=== PATIENT | female | born 1925 | race Caucasian/White ===

== ENCOUNTER → 2016-04-29 | Outpatient (CLI) | payer BC, OTHER ==
[~2016-04-29] MED LIST: ACET-1256 PO; ACET-1311 PO; CALC-354 PO; CEPH500C PO; CHOLTAB11 PO; CLIN300C2 PO; CRAN500C2 PO; LEVO1TAB35 PO; LEVO50TA6 PO; LORA-741 PO; OMEP20TA PO; PARO1TAB27 PO; PARO1TAB29 PO; RXC5 PO
== END | disposition home or self-care (01) ==
LOC: C.PAPS 11:30
PROVIDERS: ATTEND Obstetrics & Gynecology
DX: Z01.419 Encounter for gynecological examination (general) (routine) without abnormal findings (principal); N81.10 Cystocele, unspecified

== ENCOUNTER → 2016-05-11 | Outpatient (CLI) | payer BC ==
[2016-05-11 19:06] LABS: BLOOD UREA NITROGEN 11 mg/dl (7-18); BUN/CREATININE RATIO 11.8 (10-20); CALCIUM 9.6 mg/dl (8.5-10.1); CARBON DIOXIDE 26 mmol/L (21-32); CHLORIDE 97 mmol/L (98-107); CREATININE 0.97 mg/dl (0.60-1.20); GLUCOSE 136 mg/dl (70-99); SODIUM 133 mmol/L (136-145)
== END | disposition home or self-care (01) ==
LOC: C.LABPVFM 14:07
PROVIDERS: ATTEND Family Medicine
DX: R42 Dizziness and giddiness (principal); S16.1XXA Strain of muscle, fascia and tendon at neck level, initial encounter; X58.XXXA Exposure to other specified factors, initial encounter

== ENCOUNTER 2016-05-20 12:58 | Emergency (ER) | payer BC ==
[~2016-05-20] VITALS: Ht 152.4 cm; Wt 61.9 kg
[2016-05-20 13:05] VITALS: Ht 152.4 cm; Wt 61.9 kg
[2016-05-20 14:02] VITALS: O2SAT 97
[2016-05-20 14:04] LABS: BUN/CREATININE RATIO 18.6 (10-20); CALCIUM 9.2 mg/dl (8.5-10.1); CREATININE 0.77 mg/dl (0.60-1.20); POTASSIUM 4.2 mmol/L (3.5-5.1)
[2016-05-20 14:07] LABS: ALB/GLOB RATIO 0.9 (0.9-2)
--- NOTE | 2016-05-20 14:12 | DIAGNOSTIC IMAGING REPORT ---
SINGLE VIEW CHEST CLINICAL HISTORY: Cough and dyspnea. FINDINGS: An AP, portable, upright chest radiograph is compared to study dated 03/23/2011. The examination is degraded by portable technique and patient rotation. The cardiomediastinal silhouette is unremarkable. Chronic interstitial thickening is similar to previous. No airspace consolidation, large pleural effusion, or pneumothorax is seen. The skeletal structures are osteopenic. The bony thorax is grossly intact. IMPRESSION: No acute cardiopulmonary abnormality. Electronically signed by: Carlitos Welsh M.D. 05/20/2016 2:11 PM Dictated Date/Time: 05/20/2016 2:10 PM
[2016-05-20] MEDS ORDERED: SODIUM CHLORIDE 0.9% 1000ML 1,000 ML IV STA (14:24)
--- NOTE | 2016-05-20 14:30 | EMERGENCY ROOM VISIT NOTE ---
History First contact with patient: 14:16 Chief Complaint: COUGH Stated Complaint: CHEST COLD, COUGH, YELLOW URINE Nursing Triage Summary: Triage Note: Pt reports she has had a cough with dark sputum x 2 days. pt reports chest pain with coughing x 2 days. pt reports generalized weakness and feeling tired "for a couple weeks." pt reports "i get short of breath when i try to do smething." History of Present Illness The patient is an 89 year old female who presents to the Emergency Room with complaints of cough. The patient states that she has not been feeling well over the last several weeks. She states that she has had cough for the last few days. She reports dark colored sputum. She states that her urine is very dark in color. She denies any pain in her chest. She states she feels slightly short of breath when she tries to do something. She denies any abdominal pain, nausea or vomiting. She rates her discomfort a 5/10. Review of Systems A 10 system review of systems was completed with positives and pertinent negatives listed in the HPI. Past Medical/Surgical History Medical Problems: (1) Hypothyroid Social History Smoking Status: Never Smoker Housing Status: lives alone Current/Historical Medications Scheduled Calcium Carbonate-Cholecalcife (Caltrate 600+D), 1 TAB PO BID Cholecalciferol (D-5000), 1 TAB PO DAILY Levofloxacin (Levaquin), 750 MG PO DAILY Levothyroxine Sodium (Levothyroxine Sodium), 1 TAB PO DAILY Lorazepam (Ativan), 0.5 MG PO Q6H Omeprazole (Omeprazole), 1 TAB PO DAILY Miscellaneous Medications Acetaminophen (Tylenol), 650 MG PO Paroxetine (Paxil), 40 MG PO Allergies Coded Allergies: Codeine (Verified Allergy, Mild, 05/20/16) Sulfa Drugs (Verified Allergy, Mild, 05/20/16) Physical Exam Vital Signs Date Time Temp Pulse Resp B/P Pulse Ox O2 Delivery O2 Flow Rate FiO2 05/20/16 16:38 71 16 133/75 96 05/20/16 14:54 36.7 66 16 138/78 97 Room Air 05/20/16 14:02 97 Room Air 05/20/16 14:02 66 20 138/78 97 Room Air 05/20/16 13:29 67 05/20/16 13:27 97 Room Air 05/20/16 13:05 36.5 82 18 126/84 97 Room Air Physical Exam VITALS: Vitals are noted on the nurse's note and reviewed by myself. Vital signs stable. The patient is afebrile. She is not tachycardic, tachypneic or hypoxic. GENERAL: This is an 89-year-old female, in no acute distress, nondiaphoretic, well-developed well-nourished. SKIN: The skin was without rashes, erythema, edema, or bruising. There is no tenting of the skin. Capillary reflex less than 2 seconds. HEAD: Normocephalic atraumatic. EARS: External auditory canals clear, tympanic membranes pearly vides without erythema or effusion bilaterally. EYES: Pupils equal round and reactive to light and accommodation. Conjunctivae without injection, sclerae without icterus. Extraocular movements intact. NOSE: Patent, turbinates without inflammation or discharge. No sinus tenderness. MOUTH: Mucous membranes moist. Tonsils are not enlarged. Pharynx without erythema or exudate. Uvula midline. Airway patent. Tongue does not deviate. NECK: Supple without nuchal rigidity. No lymphadenopathy. No thyromegaly. Cervical spine is nontender. No JVD. HEART: Regular rate and rhythm without murmurs gallops or rubs. LUNGS: Clear to auscultation bilaterally without wheezes, rales or rhonchi. No retractions or accessory muscle use. ABDOMEN: Positive bowel sounds x 4. Soft, nontender, without masses or organomegaly. MUSCULOSKELETAL: No muscle atrophy, erythema, or edema noted. Full range of motion in all extremities. Normal gait. Strength 5/5 throughout. NEURO: Patient was alert and oriented to person place and time. No focal neurological deficits. Medical Decision & Procedures ER Provider Diagnostic Interpretation: SINGLE VIEW CHEST CLINICAL HISTORY: Cough and dyspnea. FINDINGS: An AP, portable, upright chest radiograph is compared to study dated 03/23/2011. The examination is degraded by portable technique and patient rotation. The cardiomediastinal silhouette is unremarkable. Chronic interstitial thickening is similar to previous. No airspace consolidation, large pleural effusion, or pneumothorax is seen. The skeletal structures are osteopenic. The bony thorax is grossly intact. IMPRESSION: No acute cardiopulmonary abnormality. Laboratory Results 05/20/16 13:40 Red Blood Count 4.02, Mean Corpuscular Volume 89.1, Mean Corpuscular Hemoglobin 31.6, Mean Corpuscular Hemoglobin Concent 35.5, Mean Platelet Volume 9.2, Neutrophils (%) (Auto) 69.1, Lymphocytes (%) (Auto) 13.9, Monocytes (%) (Auto) 15.1, Eosinophils (%) (Auto) 0.5, Basophils (%) (Auto) 0.5, Neutrophils # (Auto ) 6.84, Lymphocytes # (Auto) 1.38, Monocytes # (Auto) 1.50, Eosinophils # (Auto ) 0.05, Basophils # (Auto) 0.05 05/20/16 13:40 Test 05/20/16 13:40 05/20/16 14:45 White Blood Count 9.91 K/uL (4.8-10.8) Red Blood Count 4.02 M/uL (4.2-5.4) Hemoglobin 12.7 g/dL (12.0-16.0) Hematocrit 35.8 % (37-47) Mean Corpuscular Volume 89.1 fL (80-100) Mean Corpuscular Hemoglobin 31.6 pg (25-34) Mean Corpuscular Hemoglobin Concent 35.5 g/dl (32-36) Platelet Count 361 K/uL (130-400) Mean Platelet Volume 9.2 fL (7.4-10.4) Neutrophils (%) (Auto) 69.1 % Lymphocytes (%) (Auto) 13.9 % Monocytes (%) (Auto) 15.1 % Eosinophils (%) (Auto) 0.5 % Basophils (%) (Auto) 0.5 % Neutrophils # (Auto) 6.84 K/uL (1.4-6.5) Lymphocytes # (Auto) 1.38 K/uL (1.2-3.4) Monocytes # (Auto) 1.50 K/uL (0.11-0.59) Eosinophils # (Auto) 0.05 K/uL (0-0.5) Basophils # (Auto) 0.05 K/uL (0-0.2) RDW Standard Deviation 48.8 fL (36.4-46.3) RDW Coefficient of Variation 15.0 % (11.5-14.5) Immature Granulocyte % (Auto) 0.9 % Immature Granulocyte # (Auto) 0.09 K/uL (0.00-0.02) Anion Gap 10.0 mmol/L (3-11) Est Creatinine Clear Calc Drug Dose 40.7 ml/min Estimated GFR () 79.3 Estimated GFR (Non- 68.5 BUN/Creatinine Ratio 18.6 (10-20) Calcium Level 9.2 mg/dl (8.5-10.1) Total Bilirubin 0.5 mg/dl (0.2-1) Aspartate Amino Transf (AST/SGOT) 15 U/L (15-37) Alanine Aminotransferase (ALT/SGPT) 17 U/L (12-78) Alkaline Phosphatase 55 U/L (45-117) Total Protein 7.2 gm/dl (6.4-8.2) Albumin 3.4 gm/dl (3.4-5.0) Globulin 3.8 gm/dl (2.5-4.0) Albumin/Globulin Ratio 0.9 (0.9-2) Urine Color YELLOW Urine Appearance CLOUDY (CLEAR) Urine pH 6.0 (4.5-7.5) Urine Specific [place] 1.008 (1.000-1.030) Urine Protein NEG (NEG) Urine Glucose (UA) NEG (NEG) Urine Ketones NEG (NEG) Urine Occult Blood TRACE (NEG) Urine Nitrite NEG (NEG) Urine Bilirubin NEG (NEG) Urine Urobilinogen NEG (NEG) Urine Leukocyte Esterase LARGE (NEG) Urine WBC (Auto) >30 /hpf (0-5) Urine RBC (Auto) 0-4 /hpf (0-4) Urine Hyaline Casts (Auto) 1-5 /lpf (0-5) Urine Epithelial Cells (Auto) 0-5 /lpf (0-5) Urine Bacteria (Auto) 4+ (NEG) Influenza Type A Antigen Neg for Influ A (NEG) Influenza Type B Antigen Neg for Influ B (NEG) Medications Administered Medications (Trade) Dose Ordered Sig/Oswald Route Start Time Stop Time Status Last Admin Dose Admin Sodium Chloride (Nss 1000ml) 1,000 ml @ 100 mls/hr Q10H STAT IV 05/20/16 14:24 05/20/16 17:49 DC 05/20/16 14:24 100 MLS/HR ED Course Patient was seen and examined. Previous visits were reviewed. The patient does not have a fever or leukocytosis. She does have a very mild hyponatremia with sodium of 130. Urinalysis suggests urinary tract infection. Influenza was negative. Chest x-ray does not reveal any obvious infiltrate The patient was hydrated with normal saline solution The patient has had generalized fatigue and malaise. She has had a cough and describes a dark colored urine. She does appear to have urinary tract infection. She will be started on Levaquin to cover both for urine infection and potential pulmonary infection. The patient does not wish to stay in the hospital if she does not have to. She was advised to return with any fevers or worsening symptoms. The patient was also seen and examined by who agrees with the assessment and treatment plan. Medical Decision DIFFERENTIAL DIAGNOSIS: Hepatitis, cholecystitis, cholangitis, biliary colic, pancreatitis, pneumonia, subdiaphragmatic abscess, appendicitis, inguinal hernia , nephrolithiasis, inflammatory bowel disease, mesenteric adenitis, peptic ulcer disease, GERD, gastritis, pancreatitis, myocardial infarction, pericarditis, ruptured aortic aneurysm, appendicitis, gastroenteritis, bowel obstruction, splenic infarct, diverticulitis, mesenteric ischemia, metabolic, peritonitis, among others. Impression Primary Impression: Urinary tract infection Additional Impression: Upper respiratory infection Departure Information Dispostion Home / Self-Care Condition GOOD Prescriptions Levofloxacin (Levaquin) 750 Mg Tab 750 MG PO DAILY for 5 Days, #5 TAB Prov: Leti Weller PA-C 05/20/16 Referrals Gema Santiago M.D. (PCP) Patient Instructions My [facility], Urinary Tract Infecs Women Additional Instructions Levaquin once daily for 5 days Return to the emergency department with vomiting, fevers, generalized worsening symptoms Otherwise, recheck with your family doctor next week Problem Qualifiers
[2016-05-20] MEDS ORDERED: PARO1TAB29 PO (14:39)
[2016-05-20] MEDS ORDERED: ACET-1311 PO (14:42)
[2016-05-20] MEDS ORDERED: CALC-354 PO (14:42)
[2016-05-20 14:54] VITALS: TEMP 36.7
[2016-05-20 15:05] LABS: BASO % 0.5 %; BASO ABS # 0.05 K/uL (0-0.2); COMPLETE YES; EOS % 0.5 %; HEMATOCRIT 35.8 % (37-47); IG% 0.9 %; LYMPH % 13.9 %; LYMPH ABS # 1.38 K/uL (1.2-3.4); MEAN CELL VOLUME 89.1 fL (80-100); MEAN CORPUSCULAR HEMOGLOBIN 31.6 pg (25-34); MEAN CORPUSCULAR HGB CONC 35.5 g/dl (32-36); MEAN PLATELET VOLUME 9.2 fL (7.4-10.4); MONO % 15.1 %; NEUT % 69.1 %; PLATELET COUNT 361 K/uL (130-400); RED BLOOD COUNT 4.02 M/uL (4.2-5.4); WHITE BLOOD COUNT 9.91 K/uL (4.8-10.8)
[2016-05-20 15:05] LABS: URINE APPEARANCE CLOUDY (CLEAR); URINE BILIRUBIN NEG (NEG); URINE COLOR YELLOW; URINE EPITHELIAL CELL AUTO 0-5 /lpf (0-5); URINE NITRITE NEG (NEG); URINE SPECIFIC GRAVITY 1.008 (1.000-1.030); UROBILINOGEN NEG (NEG); ZZURINE CULT IF INDIC CATH YES
[2016-05-20 15:08] LABS: MANUAL MICROSCOPIC REQUIRED? NO; REVIEW REQ? NO
[2016-05-20] MEDS ORDERED: LEVO1TAB35 PO (16:24)
[2016-05-20 16:38] VITALS: BP 133/75; PULSE 71; O2SAT 96
--- NOTE | 2016-05-20 16:46 | EMERGENCY ROOM VISIT NOTE ---
ED Visit Note First contact with patient: 14:16 Staff note: I have reviewed the Patients chart and have discussed this case with my PA. I generally agree with the ED note and findings.
[2016-05-22] MEDS ORDERED: LEVO50TA6 PO (14:39)
[2016-05-22] MEDS ORDERED: LORA-741 PO (14:39)
[2016-05-22] MEDS ORDERED: CHOLTAB11 PO (14:42)
[2016-05-22] MEDS ORDERED: OMEP20TA PO (14:42)
[2016-09-30] MEDS ORDERED: ACET-1256 PO (14:09)
[2016-10-04] MEDS ORDERED: CLIN300C2 PO (10:06)
[2016-10-07] MEDS ORDERED: RXC5 PO (09:41)
== END 2016-05-20 16:40 | disposition home or self-care (01) ==
LOC: C.EDB 13:02
DX: N39.0 Urinary tract infection, site not specified (principal); J06.9 Acute upper respiratory infection, unspecified; E03.9 Hypothyroidism, unspecified; Z79.899 Other long term (current) drug therapy; Z88.2 Allergy status to sulfonamides; Z88.5 Allergy status to narcotic agent

== ENCOUNTER 2016-05-22 21:34 | Emergency (ER) | payer BC ==
[~2016-05-22] VITALS: Ht 152.4 cm; Wt 62.5 kg
[~2016-05-22 21:34] MED LIST changes: -ACET-1256 PO; -CEPH500C PO; -CLIN300C2 PO; -CRAN500C2 PO; -PARO1TAB27 PO; -RXC5 PO
[2016-05-22 21:35] VITALS: TEMP 36.6; Ht 152.4 cm; Wt 62.5 kg
[2016-05-22] MEDS ORDERED: SODIUM CHLORIDE 0.9% 500ML 500 ML IV STA (22:18)
[2016-05-22] MEDS ORDERED: CEFTRIAXONE SOD INJ 1 GM ADDVIAL IV STA (22:18)
[2016-05-22] MEDS ORDERED: PARO1TAB27 PO (22:27)
[2016-05-22 23:05] LABS: PARTIAL THROMBOPLASTIN RATIO 1.2; PROTHROMBIN TIME (PATIENT) 11.2 SECONDS (9.0-12.0)
[2016-05-22 23:14] LABS: BLOOD UREA NITROGEN 15 mg/dl (7-18); BUN/CREATININE RATIO 19.9 (10-20); CALCIUM 9.1 mg/dl (8.5-10.1); CARBON DIOXIDE 26 mmol/L (21-32); CHLORIDE 94 mmol/L (98-107); CREATININE 0.75 mg/dl (0.60-1.20); GLUCOSE 94 mg/dl (70-99); MAGNESIUM 1.9 mg/dl (1.8-2.4); POTASSIUM 4.2 mmol/L (3.5-5.1); SODIUM 129 mmol/L (136-145)
[2016-05-22 23:19] LABS: URINE APPEARANCE CLEAR (CLEAR); URINE BILIRUBIN NEG (NEG); URINE COLOR YELLOW; URINE EPITHELIAL CELL AUTO 0-5 /lpf (0-5); URINE NITRITE NEG (NEG); URINE SPECIFIC GRAVITY 1.004 (1.000-1.030); UROBILINOGEN NEG (NEG); ZZURINE CULT IF INDIC CATH NO
[2016-05-22 23:20] LABS: MANUAL MICROSCOPIC REQUIRED? NO; REVIEW REQ? NO
[2016-05-22 23:23] LABS: ALB/GLOB RATIO 0.8 (0.9-2); ALKALINE PHOSPHATASE 49 U/L (45-117); ALT/SGPT 14 U/L (12-78); AST/SGOT 14 U/L (15-37); C-REACTIVE PROTEIN 3.34 mg/dl (0-0.29)
--- NOTE | 2016-05-22 23:29 | EMERGENCY ROOM VISIT NOTE ---
ED Visit Note First contact with patient: 22:09 I have seen and examined this patient with Ben Alcazar and generally agree with the treatment plan as discussed. Current/Historical Medications Scheduled Acetaminophen (Tylenol), 650 MG PO PRN Calcium Carbonate-Cholecalcife (Caltrate 600+D), 1.5 TAB PO DAILY Cholecalciferol (D-5000), 1 TAB PO DAILY Levofloxacin (Levaquin), 750 MG PO DAILY Levothyroxine Sodium (Levothyroxine Sodium), 1 TAB PO DAILY Lorazepam (Ativan), 0.5 MG PO HS Omeprazole (Omeprazole), 1 TAB PO DAILY Paroxetine (Paxil), 20 MG PO QPM Allergies Coded Allergies: Codeine (Verified Allergy, Mild, 05/20/16) Sulfa Drugs (Verified Allergy, Mild, 05/20/16) Vital Signs Date Time Temp Pulse Resp B/P Pulse Ox O2 Delivery O2 Flow Rate FiO2 05/22/16 22:00 71 05/22/16 21:35 36.6 85 20 144/84 98 Room Air Laboratory Results 05/22/16 22:35 Test 05/22/16 22:35 05/22/16 22:40 Erythrocyte Sedimentation Rate 31 mm/hr (0-21) Prothrombin Time 11.2 SECONDS (9.0-12.0) Prothromb Time International Ratio 1.0 (0.9-1.1) Activated Partial Thromboplast Time 30.4 SECONDS (21.0-31.0) Partial Thromboplastin Ratio 1.2 Anion Gap 9.0 mmol/L (3-11) Est Creatinine Clear Calc Drug Dose 42.0 ml/min Estimated GFR () 81.9 Estimated GFR (Non- 70.7 BUN/Creatinine Ratio 19.9 (10-20) Calcium Level 9.1 mg/dl (8.5-10.1) Magnesium Level 1.9 mg/dl (1.8-2.4) Total Bilirubin 0.5 mg/dl (0.2-1) Aspartate Amino Transf (AST/SGOT) 14 U/L (15-37) Alanine Aminotransferase (ALT/SGPT) 14 U/L (12-78) Alkaline Phosphatase 49 U/L (45-117) Total Creatine Kinase 42 U/L (26-192) Creatine Kinase MB 2.1 ng/ml (0.5-3.6) Creatine Kinase MB Ratio 5.0 (0-3.0) Troponin I < 0.015 ng/ml (0-0.045) C-Reactive Protein 3.34 mg/dl (0-0.29) Total Protein 6.4 gm/dl (6.4-8.2) Albumin 2.9 gm/dl (3.4-5.0) Globulin 3.5 gm/dl (2.5-4.0) Albumin/Globulin Ratio 0.8 (0.9-2) Lipase 123 U/L (73-393) Thyroid Stimulating Hormone (TSH) 4.590 uIu/ml (0.300-4.500) Urine Color YELLOW Urine Appearance CLEAR (CLEAR) Urine pH 7.0 (4.5-7.5) Urine Specific [place] 1.004 (1.000-1.030) Urine Protein NEG (NEG) Urine Glucose (UA) NEG (NEG) Urine Ketones NEG (NEG) Urine Occult Blood NEG (NEG) Urine Nitrite NEG (NEG) Urine Bilirubin NEG (NEG) Urine Urobilinogen NEG (NEG) Urine Leukocyte Esterase NEG (NEG) Urine WBC (Auto) 1-5 /hpf (0-5) Urine RBC (Auto) 0-4 /hpf (0-4) Urine Hyaline Casts (Auto) 0 /lpf (0-5) Urine Epithelial Cells (Auto) 0-5 /lpf (0-5) Urine Bacteria (Auto) NEG (NEG) Bedside Lactic Acid Venous 0.51 mmol/L (0.90-1.70) Medications Administered Medications (Trade) Dose Ordered Sig/Oswald Route Start Time Stop Time Status Last Admin Dose Admin Sodium Chloride (Nss 500ml) 500 ml @ 999 mls/hr Q31M STAT IV 05/22/16 22:18 05/22/16 22:48 DC 05/22/16 22:50 999 MLS/HR Ceftriaxone Sodium (Rocephin Inj) 1 gm NOW STAT IV 05/22/16 22:18 05/22/16 22:21 DC 05/22/16 22:50 1 GM Departure Information Referrals Gema Santiago M.D. (PCP) Patient Instructions My [facility]
[2016-05-22 23:36] LABS: BASO % 0.2 %; BASO ABS # 0.02 K/uL (0-0.2); COMPLETE YES; EOS % 0.9 %; HEMATOCRIT 33.3 % (37-47); IG% 1.4 %; LYMPH % 21.5 %; LYMPH ABS # 1.95 K/uL (1.2-3.4); MEAN CELL VOLUME 88.3 fL (80-100); MEAN CORPUSCULAR HGB CONC 35.1 g/dl (32-36); MONO % 16.8 %; NEUT % 59.2 %; PLATELET COUNT 354 K/uL (130-400); RED BLOOD COUNT 3.77 M/uL (4.2-5.4); WHITE BLOOD COUNT 9.06 K/uL (4.8-10.8)
--- NOTE | 2016-05-23 00:20 | EMERGENCY ROOM VISIT NOTE ---
History First contact with patient: 22:09 Chief Complaint: WEAKNESS Stated Complaint: UNABLE TO HOLD URINE IN,WEAK Nursing Triage Summary: Patient states "I was here on Monday and they told me that I had a UTI. I was put on Levaquin. They called me today and told me that the urine culture grew out E.Coli. They called in Keflex for me to start taking but the pharmacy isn't open until tomorrow. I feel weak all over. I still have phlegm in my throat that I can't seem to cough up with a scratchy throat. Every time I cough, it makes my bladder drop. I feel like something is falling out down below." Patient denies any pain, nausea, vomiting or shortness of breath. History of Present Illness The patient is an 89 year old female who presents to the Emergency Department by private vehicle for evaluation of her weakness, burning with urination, and ongoing cough. She reports that she has had a cough and generalized malaise for the last several days. She was seen in this facility 2 days ago for those symptoms. She had a catheterized urine specimen obtained which was concerning for UTI. She was placed on Levaquin for coverage for respiratory as well as urinary tract symptoms. She has had persistent symptoms since. In addition, she reports that she has developed dysuria which is new. She was contacted today and informed that there was Escherichia coli in her urine. Her antibiotic was changed to Keflex. She was unable to take this medication as her pharmacy was not open today. She has been coughing and this is caused her to urinate herself. In addition, while wiping, she noticed a palpable lump in the vaginal area. She did have a history of cystopexy performed by Dr. Navas several years ago for similar symptoms. She has had no recent similar symptoms in the past. She rates her current discomfort is 7/10. She denies any headaches, dizziness, neck pain/stiffness, nausea, vomiting, chest pain, palpitations, short of breath, hemoptysis, hematochezia, or melena. She denies any maría elena hematuria. Review of Systems A complete 10-point Review of Systems was discussed with the patient, with pertinent positives and negatives listed in the History of Present Illness. All remaining Review of Systems questions can be considered negative unless otherwise specified. Past Medical/Surgical History Medical Problems: (1) Hypothyroid Social History Smoking Status: Never Smoker Smokeless Tobacco Use: No Drug Use: none Marital Status: single Housing Status: lives alone Occupation Status: retired Current/Historical Medications Scheduled Acetaminophen (Tylenol), 650 MG PO PRN Calcium Carbonate-Cholecalcife (Caltrate 600+D), 1.5 TAB PO DAILY Cephalexin Monohydrate (Keflex), 500 MG PO QID Cholecalciferol (D-5000), 1 TAB PO DAILY Levofloxacin (Levaquin), 750 MG PO DAILY Levothyroxine Sodium (Levothyroxine Sodium), 1 TAB PO DAILY Lorazepam (Ativan), 0.5 MG PO HS Omeprazole (Omeprazole), 1 TAB PO DAILY Paroxetine (Paxil), 20 MG PO QPM Allergies Coded Allergies: Codeine (Verified Allergy, Mild, 05/20/16) Sulfa Drugs (Verified Allergy, Mild, 05/20/16) Physical Exam Vital Signs Date Time Temp Pulse Resp B/P Pulse Ox O2 Delivery O2 Flow Rate FiO2 05/23/16 02:16 85 18 159/99 98 Room Air 05/23/16 01:06 72 05/23/16 00:47 75 16 97 Room Air 05/23/16 00:31 98 Room Air 05/22/16 23:43 75 16 117/88 95 Room Air 05/22/16 22:00 71 05/22/16 21:35 36.6 85 20 144/84 98 Room Air Pain Rating (0-10): 7 Physical Exam VITAL SIGNS - Vital signs and nursing notes were reviewed. GENERAL - 89-year-old female appearing her stated age who is in no acute distress. Communicates well with provider and answers questions appropriately. SKIN - Without rashes. HEAD - NC/AT. EYES - PERRL with EOMI bilaterally. Sclera anicteric. Palpebral conjunctiva pink and moist with no injection noted. EARS - No deformities of external structures noted on gross examination bilaterally. No pain elicited with palpation of the tragus bilaterally. External auditory canals without discharge or otorrhea. Tympanic membranes pearly vides without retraction or bulging. No fluid or purulent material visualized behind the TM. Handle of malleus, umbo, cone of light, pars tensa/ flaccid all easily visualized. NOSE - Midline and without cyanosis. No epistaxis or purulent drainage noted. Septum midline without deviation or septal hematoma noted. MOUTH/OROPHARYNX - Without perioral cyanosis. Buccal mucosa pink and moist and without leukoplakia. Tongue midline with equal elevation of palate bilaterally. No tonsillar hypertrophy, erythema, or exudates noted. NECK - Neck with FROM. Supple to palpation. No lymphadenopathy noted. No nuchal rigidity. LUNGS - Chest wall symmetric without accessory muscle use, intercostals retractions, or central cyanosis. Normal vesicular breath sounds CTA B/L. No wheezes, rales, or rhonchi appreciated. CARDIAC - RRR with S1/S2. No murmur, rubs, or gallops appreciated. ABDOMEN - Abdominal contour flat without pulsations or visible masses. BS normoactive all four quadrants. No tenderness, palpable masses, hepatosplenomegaly, or ascites noted. 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 No erythema. No bleeding. No discharge. EXTREMITIES - No clubbing or peripheral cyanosis. No pretibial edema present. +5 /5 strength noted in UE/LE bilaterally. NEUROLOGIC - Cranial nerves II through XII grossly intact. Sensory intact to light touch throughout. PSYCH - A&Ox3 and cooperates fully with examiner. Pt is very pleasant and interacts well with examiner. Medical Decision & Procedures ER Provider Diagnostic Interpretation: X-ray the chest was obtained and compared to prior 2 days ago. No changes noted. No acute cardiopulmonary processes or infiltrates appreciated. Radiologist's impression unavailable at the time of dictation. Radiological imaging and reports were reviewed by myself. Radiologist's Interpretation per [facility] as follows: CT HEAD: No intracranial hemorrhage, mass effect or CT evidence of acute infarct Ventricles are within limits and midline Chronic and involutionary changes Partially imaged left maxillary sinusitis and mild appearing paranasal sinus disease Laboratory Results 05/22/16 22:35 Red Blood Count 3.77, Mean Corpuscular Volume 88.3, Mean Corpuscular Hemoglobin 31.0, Mean Corpuscular Hemoglobin Concent 35.1, Mean Platelet Volume 9.0, Neutrophils (%) (Auto) 59.2, Lymphocytes (%) (Auto) 21.5, Monocytes (%) (Auto) 16.8, Eosinophils (%) (Auto) 0.9, Basophils (%) (Auto) 0.2, Neutrophils # (Auto ) 5.36, Lymphocytes # (Auto) 1.95, Monocytes # (Auto) 1.52, Eosinophils # (Auto ) 0.08, Basophils # (Auto) 0.02 05/22/16 22:35 Test 05/22/16 22:35 05/22/16 22:40 White Blood Count 9.06 K/uL (4.8-10.8) Red Blood Count 3.77 M/uL (4.2-5.4) Hemoglobin 11.7 g/dL (12.0-16.0) Hematocrit 33.3 % (37-47) Mean Corpuscular Volume 88.3 fL (80-100) Mean Corpuscular Hemoglobin 31.0 pg (25-34) Mean Corpuscular Hemoglobin Concent 35.1 g/dl (32-36) Platelet Count 354 K/uL (130-400) Mean Platelet Volume 9.0 fL (7.4-10.4) Neutrophils (%) (Auto) 59.2 % Lymphocytes (%) (Auto) 21.5 % Monocytes (%) (Auto) 16.8 % Eosinophils (%) (Auto) 0.9 % Basophils (%) (Auto) 0.2 % Neutrophils # (Auto) 5.36 K/uL (1.4-6.5) Lymphocytes # (Auto) 1.95 K/uL (1.2-3.4) Monocytes # (Auto) 1.52 K/uL (0.11-0.59) Eosinophils # (Auto) 0.08 K/uL (0-0.5) Basophils # (Auto) 0.02 K/uL (0-0.2) RDW Standard Deviation 48.1 fL (36.4-46.3) RDW Coefficient of Variation 14.8 % (11.5-14.5) Immature Granulocyte % (Auto) 1.4 % Immature Granulocyte # (Auto) 0.13 K/uL (0.00-0.02) Erythrocyte Sedimentation Rate 31 mm/hr (0-21) Prothrombin Time 11.2 SECONDS (9.0-12.0) Prothromb Time International Ratio 1.0 (0.9-1.1) Activated Partial Thromboplast Time 30.4 SECONDS (21.0-31.0) Partial Thromboplastin Ratio 1.2 Anion Gap 9.0 mmol/L (3-11) Est Creatinine Clear Calc Drug Dose 42.0 ml/min Estimated GFR () 81.9 Estimated GFR (Non- 70.7 BUN/Creatinine Ratio 19.9 (10-20) Calcium Level 9.1 mg/dl (8.5-10.1) Magnesium Level 1.9 mg/dl (1.8-2.4) Total Bilirubin 0.5 mg/dl (0.2-1) Aspartate Amino Transf (AST/SGOT) 14 U/L (15-37) Alanine Aminotransferase (ALT/SGPT) 14 U/L (12-78) Alkaline Phosphatase 49 U/L (45-117) Total Creatine Kinase 42 U/L (26-192) Creatine Kinase MB 2.1 ng/ml (0.5-3.6) Creatine Kinase MB Ratio 5.0 (0-3.0) Troponin I < 0.015 ng/ml (0-0.045) C-Reactive Protein 3.34 mg/dl (0-0.29) Total Protein 6.4 gm/dl (6.4-8.2) Albumin 2.9 gm/dl (3.4-5.0) Globulin 3.5 gm/dl (2.5-4.0) Albumin/Globulin Ratio 0.8 (0.9-2) Lipase 123 U/L (73-393) Thyroid Stimulating Hormone (TSH) 4.590 uIu/ml (0.300-4.500) Urine Color YELLOW Urine Appearance CLEAR (CLEAR) Urine pH 7.0 (4.5-7.5) Urine Specific [place] 1.004 (1.000-1.030) Urine Protein NEG (NEG) Urine Glucose (UA) NEG (NEG) Urine Ketones NEG (NEG) Urine Occult Blood NEG (NEG) Urine Nitrite NEG (NEG) Urine Bilirubin NEG (NEG) Urine Urobilinogen NEG (NEG) Urine Leukocyte Esterase NEG (NEG) Urine WBC (Auto) 1-5 /hpf (0-5) Urine RBC (Auto) 0-4 /hpf (0-4) Urine Hyaline Casts (Auto) 0 /lpf (0-5) Urine Epithelial Cells (Auto) 0-5 /lpf (0-5) Urine Bacteria (Auto) NEG (NEG) Bedside Lactic Acid Venous 0.51 mmol/L (0.90-1.70) Medications Administered Medications (Trade) Dose Ordered Sig/Oswald Route Start Time Stop Time Status Last Admin Dose Admin Sodium Chloride (Nss 500ml) 500 ml @ 999 mls/hr Q31M STAT IV 05/22/16 22:18 05/22/16 22:48 DC 05/22/16 22:50 999 MLS/HR Ceftriaxone Sodium (Rocephin Inj) 1 gm NOW STAT IV 05/22/16 22:18 05/22/16 22:21 DC 05/22/16 22:50 1 GM Acetaminophen (Tylenol Tab) 650 mg NOW STAT PO 05/23/16 00:37 05/23/16 00:38 DC 05/23/16 00:46 650 MG Cephalexin Monohydrate (Keflex 500MG Home Pack) 1 homepack NOW ONCE PO 05/23/16 02:00 05/23/16 02:01 DC 05/23/16 02:41 1 HOMEPACK Procedure Patient was placed on the value stream manager and monitored throughout the entire extent of their stay. In addition, the patient's pulse oximetry was monitored throughout the entire stay. Any abnormalities or aberrancies were addressed appropriately. ECG Indication: weakness Rate (beats per minute): 78 Rhythm: sinus rhythm Findings: PAC, no acute ischemic change, no ectopy Change: no significant change (from 05/20/2016.) ED Course Patient was seen and evaluated by myself. Labs were drawn, saline lock in place. EKG and chest x-rays were obtained. Previous emergency department visit notes were reviewed. The patient was hydrated with a 500 mL normal saline bolus. She was treated with 1 g of Rocephin intravenously after reviewing previous cultures. Laboratory results demonstrate no acute leukocytosis, worrisome anemia, or bandemia. The patient has no significant electrolyte abnormalities. ESR and CRP are minimally elevated. Troponin and cardiac enzymes are otherwise unremarkable. Point of care lactic acid is not elevated. She was found to be hyponatremic with a sodium of 129. This is essentially unchanged from prior. Urinalysis does not suggest infection. She was treated with 650 mg Tylenol orally secondary complaint of headache. Patient still complains of weakness. CT the head was obtained. Imaging results as above. I did discuss the case with Dr. Navas who suggests no immediate intervention necessary for the patient's prolapsed bladder. Laboratory results and imaging studies were reviewed with the patient and family who acknowledges understanding. They were offered admission versus close outpatient follow-up with primary care provider. They declined admission at this point. She was provided a home pack for Keflex as well as continue course of Keflex for home. They're educated on worrisome symptoms for return visit to the emergency department. Patient discharged home afebrile and in good condition. Medical Decision Given the patient's presentation and stated complaint, I did elect to perform the above-mentioned workup. The patient presents today with increasing weakness. She was seen in this facility and found to have a urinary tract infection. She was on Levaquin for pulmonary source as well as coverage for urine. She was found to have Escherichia coli in her urine. It was suggested that she changed to Keflex, however her pharmacy is not open. Because of this, this is her presentation today. She has no fever. She has no leukocytosis. She has no focal neurological deficits. Her exam is otherwise unremarkable. She does complain some dysuria as well as vaginal protrusion. On exam, the patient did have mild prolapse of her bladder. In conversation with [employer], this is consistent with patient's prior exams. She feels no intervention is necessary at this point. Her urinalysis is actually negative today. Regardless , given urine cultures recently, the patient was treated with IV Rocephin and will be placed on Keflex for home. Blood cultures are pending at this time. She has no fever. She elects to follow up closely with her primary care provider this week rather than being admitted at this point. The patient was educated on worrisome symptoms for return visit to the emergency department. Patient discharged home afebrile and in good condition. In the evaluation and treatment of this patient, the following differential diagnoses were considered: ACS, [place], CVA, TIA, intra-abdominal pathology, UTI, sepsis, amongst others. Impression Primary Impression: Weakness Additional Impressions: UTI (urinary tract infection) Bladder prolapse Departure Information Dispostion Home / Self-Care Condition GOOD Prescriptions Cephalexin Monohydrate (Keflex) 500 Mg Cap 500 MG PO QID for 7 Days, #28 CAP Prov: Ben Anaya PA-C 05/23/16 Referrals Gema Santiago M.D. (PCP) Patient Instructions My [facility] Additional Instructions You have been seen in the emergency department today for your weakness and UTI. You were prescribed Keflex to be taken as prescribed. This is an antibiotic. All antibiotics have the potential to cause diarrhea. Stop this medication and contact a medical provider if you were to develop any significant adverse side effects including: wheezing, shortness of breath, passing out, vomiting, or a diffuse rash. Always take antibiotics as directed and COMPLETE the ENTIRE course regardless of the improvement of your symptoms. Follow-up with your primary care provider this week for recheck. Return for any changing or worsening symptoms. Problem Qualifiers Additional Impressions: UTI (urinary tract infection) Urinary tract infection type: site unspecified Hematuria presence: without hematuria Qualified Codes: N39.0 - Urinary tract infection, site not specified
[2016-05-23 00:31] VITALS: O2SAT 98
[2016-05-23] MEDS ORDERED: ACETAMINOPHEN 325 MG TAB PO STA (00:37)
[2016-05-23] MEDS ORDERED: CEPHALEXIN 500MG HOME PACK 1 EA BTL PO ONE (02:00)
[2016-05-23] MEDS ORDERED: CEPH500C PO (02:04)
[2016-05-23 02:16] VITALS: BP 159/99; PULSE 85; O2SAT 98
--- NOTE | 2016-05-23 06:39 | DIAGNOSTIC IMAGING REPORT ---
CT HEAD WITHOUT CONTRAST (CT) CLINICAL HISTORY: weakness COMPARISON STUDY: No previous studies for comparison. TECHNIQUE: Axial CT of the brain is performed from the vertex to the skull base. IV contrast was not administered for this examination. CT DOSE: FINDINGS: No intra or extra-axial mass lesions are visualized. There is no CT evidence of acute cortical infarction. There is no evidence of midline shift. There is no acute hemorrhage. No calvarial fractures are visualized. There are patchy white matter hypodensities likely on a small vessel basis. There is no evidence of pathologic ventricular dilatation. Inflammatory changes are present within the left maxillary ethmoid and sphenoid sinuses. IMPRESSION: Inflammatory changes in the paranasal sinuses, otherwise no acute intracranial findings. Electronically signed by: Liborio Hope M.D. 05/23/2016 6:38 AM Dictated Date/Time: 05/23/2016 6:37 AM
--- NOTE | 2016-05-23 07:28 | DIAGNOSTIC IMAGING REPORT ---
CHEST ONE VIEW PORTABLE HISTORY: weakness COMPARISON: Chest 05/20/2016. FINDINGS: The lungs are clear. Cardiac silhouette is normal in size. No pleural effusions. No pneumothorax. IMPRESSION: No acute process. Electronically signed by: Jasper Hernández M.D. 05/23/2016 7:27 AM Dictated Date/Time: 05/23/2016 7:26 AM
[2016-09-30] MEDS ORDERED: ACET-1256 PO (14:09)
[2016-10-04] MEDS ORDERED: CLIN300C2 PO (10:06)
[2016-10-07] MEDS ORDERED: RXC5 PO (09:41)
== END 2016-05-23 02:30 | disposition home or self-care (01) ==
LOC: C.EDB 21:34 → C.EDA 05-23 02:30
DX: N39.0 Urinary tract infection, site not specified (principal); R53.1 Weakness; Z79.899 Other long term (current) drug therapy; E03.9 Hypothyroidism, unspecified

== ENCOUNTER 2016-06-05 12:12 | Emergency (ER) | payer BC ==
[~2016-06-05] VITALS: Ht 162.6 cm; Wt 61.1 kg
[~2016-06-05 12:12] MED LIST changes: -LEVO1TAB35 PO; +PARO1TAB27 PO; -PARO1TAB29 PO
[2016-06-05 12:17] VITALS: TEMP 36.3; Ht 162.6 cm; Wt 61.1 kg
[2016-06-05] MEDS ORDERED: CRAN500C2 PO (14:14)
[2016-06-05 14:18] LABS: URINE BILIRUBIN NEG (NEG); URINE COLOR YELLOW; URINE NITRITE NEG (NEG); URINE PH 7.5 (4.5-7.5); UROBILINOGEN NEG (NEG)
[2016-06-05 14:20] LABS: SULFASALICYLIC ACID NEG (NEG); URINE APPEARANCE CLEAR (CLEAR)
[2016-06-05 14:22] LABS: MANUAL MICROSCOPIC REQUIRED? NO; REVIEW REQ? NO; ZZUR CULT IF INDIC CLEAN CATCH NO
--- NOTE | 2016-06-05 14:32 | DIAGNOSTIC IMAGING REPORT ---
CHEST ONE VIEW PORTABLE CLINICAL HISTORY: Generalized Weakness dyspnea COMPARISON STUDY: 05/22/2016 FINDINGS: The bones soft tissues and hemidiaphragms are normal. The cardiomediastinal silhouette is normal. The lungs are clear. The pulmonary vasculature is normal. IMPRESSION: Negative chest. Electronically signed by: Vel Meyer M.D. 06/05/2016 2:30 PM Dictated Date/Time: 06/05/2016 2:30 PM
[2016-06-05 14:41] LABS: BASO % 0.4 %; BASO ABS # 0.03 K/uL (0-0.2); COMPLETE YES; EOS % 0.5 %; HEMATOCRIT 34.7 % (37-47); IG% 0.8 %; LYMPH % 17.3 %; LYMPH ABS # 1.44 K/uL (1.2-3.4); MEAN CELL VOLUME 86.3 fL (80-100); MEAN CORPUSCULAR HEMOGLOBIN 31.3 pg (25-34); MEAN CORPUSCULAR HGB CONC 36.3 g/dl (32-36); MEAN PLATELET VOLUME 8.6 fL (7.4-10.4); MONO % 8.6 %; NEUT % 72.4 %; PLATELET COUNT 432 K/uL (130-400); RED BLOOD COUNT 4.02 M/uL (4.2-5.4); WHITE BLOOD COUNT 8.33 K/uL (4.8-10.8)
[2016-06-05 15:10] LABS: ALT/SGPT 17 U/L (12-78); BLOOD UREA NITROGEN 9 mg/dl (7-18); BUN/CREATININE RATIO 13.8 (10-20); CARBON DIOXIDE 26 mmol/L (21-32); CHLORIDE 92 mmol/L (98-107); CREATININE 0.63 mg/dl (0.60-1.20); GLUCOSE 97 mg/dl (70-99); MAGNESIUM 2.1 mg/dl (1.8-2.4); POTASSIUM 4.4 mmol/L (3.5-5.1); SODIUM 128 mmol/L (136-145)
[2016-06-05 15:19] LABS: ALKALINE PHOSPHATASE 49 U/L (45-117); AST/SGOT 12 U/L (15-37); CKMB/CK RATIO 2.8 (0-3.0); PHOSPHORUS 2.6 mg/dl (2.5-4.9)
[2016-06-05] MEDS ORDERED: SODIUM CHLORIDE 0.9% 500ML 500 ML IV STA (15:39)
--- NOTE | 2016-06-05 16:48 | EMERGENCY ROOM VISIT NOTE ---
History Report prepared by Angie: Marybeth Barron Under the Supervision of: Dr. Marcio Duarte M.D. First contact with patient: 13:45 Chief Complaint: NAUSEA Stated Complaint: WEAK, CAN'T EAT Nursing Triage Summary: Pt reports she is nauseous and cannot eat no vomiting or diarrhea Pt c/o weakness due to not eating This is third time pt has been here in the past month for same History of Present Illness The patient is an 89 year old female who presents to the Emergency Room with complaints of persistent weakness with onset several weeks ago. At the beginning of the month, the patient had a urinary tract infection, for which she was on Keflex. The patient continues to feel weak and tired. She does not have her usual appetite. The patient has some soreness in her legs. The patient has had trouble controlling her bladder. She has some soreness in her legs and she has some occasional back pain. The patient denies headache, recent falls, fevers, abdominal pain, swelling in her legs. Source of History: patient Onset: several weeks ago Position: other (global ) Quality: other (weakness) Timing: other (persistent) Associated Symptoms: + back pain, No abdominal pain, No fevers, No headache Note: She does not have her usual appetite. The patient has some soreness in her legs. The patient has had trouble controlling her bladder. She denies swelling in her legs. Review of Systems See HPI for pertinent positives & negatives. A total of 10 systems reviewed and were otherwise negative. Past Medical & Surgical Medical Problems: (1) Hypothyroid Family History Diabetes mellitus FHx: cancer Social History Smoking Status: Never Smoker Drug Use: none Marital Status: single Housing Status: lives alone Occupation Status: retired Current/Historical Medications Scheduled Acetaminophen (Tylenol), 650 MG PO PRN Calcium Carbonate-Cholecalcife (Caltrate 600+D), 1.5 TAB PO DAILY Cholecalciferol (D-5000), 1 TAB PO DAILY Cranberry (Vaccinium Macrocarp (Cranberry), 1 CAP PO DAILY Levothyroxine Sodium (Levothyroxine Sodium), 1 TAB PO DAILY Lorazepam (Ativan), 0.5 MG PO HS Omeprazole (Omeprazole), 1 TAB PO DAILY Paroxetine (Paxil), 20 MG PO QPM Allergies Coded Allergies: Codeine (Verified Allergy, Mild, 06/05/16) Sulfa Drugs (Verified Allergy, Mild, 06/05/16) Cephalexin (Unverified Adverse Reaction, Intermediate, GI UPSET, 06/05/16) Physical Exam Vital Signs Date Time Temp Pulse Resp B/P Pulse Ox O2 Delivery O2 Flow Rate FiO2 06/05/16 17:04 70 20 169/72 98 06/05/16 14:45 62 18 177/90 98 Room Air 06/05/16 12:17 36.3 72 18 160/79 96 Room Air Physical Exam GENERAL: Patient is elderly appearing and in no acute distress. HEENT: No acute trauma, normocephalic atraumatic, mucous membranes mildly dry, no nasal congestion, no scleral icterus. NECK: No stridor, no adenopathy, no meningismus, trachea is midline. LUNGS: No dyspnea. Clear to auscultation and equal bilaterally. No wheeze, no rhonchi. HEART: Regular rate and rhythm. No murmurs, rubs, gallops appreciated. ABDOMEN: Soft, nontender, bowel sounds positive, no masses appreciated, no peritonitis. BACK: No midline tenderness, no CVA tenderness EXTREMITIES: Normal motion all extremities, no cyanosis, no edema. NEUROLOGIC: Alert and oriented, no acute motor or sensory deficits, no focal weakness, cranial nerves grossly intact. SKIN: No rash, no jaundice, no diaphoresis. Medical Decision & Procedures ER Provider Diagnostic Interpretation: X ray results are stated below per my interpretation and the radiologist's interpretation. CHEST ONE VIEW PORTABLE CLINICAL HISTORY: Generalized Weakness dyspnea COMPARISON STUDY: 05/22/2016 FINDINGS: The bones soft tissues and hemidiaphragms are normal. The cardiomediastinal silhouette is normal. The lungs are clear. The pulmonary vasculature is normal. IMPRESSION: Negative chest. Electronically signed by: Vel Meyer M.D. 06/05/2016 2:30 PM Dictated Date/Time: 06/05/2016 2:30 PM Laboratory Results 06/05/16 14:30 Red Blood Count 4.02, Mean Corpuscular Volume 86.3, Mean Corpuscular Hemoglobin 31.3, Mean Corpuscular Hemoglobin Concent 36.3, Mean Platelet Volume 8.6, Neutrophils (%) (Auto) 72.4, Lymphocytes (%) (Auto) 17.3, Monocytes (%) (Auto) 8.6, Eosinophils (%) (Auto) 0.5, Basophils (%) (Auto) 0.4, Neutrophils # (Auto) 6.03, Lymphocytes # (Auto) 1.44, Monocytes # (Auto) 0.72, Eosinophils # (Auto) 0.04, Basophils # (Auto) 0.03 06/05/16 14:30 Test 06/05/16 14:00 06/05/16 14:30 Urine Color YELLOW Urine Appearance CLEAR (CLEAR) Urine pH 7.5 (4.5-7.5) Urine Specific Victoria 1.010 (1.000-1.030) Urine Protein NEG (NEG) Urine Glucose (UA) NEG (NEG) Urine Ketones NEG (NEG) Urine Occult Blood TRACE (NEG) Urine Nitrite NEG (NEG) Urine Bilirubin NEG (NEG) Urine Urobilinogen NEG (NEG) Urine Leukocyte Esterase NEG (NEG) Urine WBC (Auto) 0 /hpf (0-5) Urine RBC (Auto) 0-4 /hpf (0-4) Urine Hyaline Casts (Auto) 0 /lpf (0-5) Urine Epithelial Cells (Auto) 10-20 /lpf (0-5) Urine Bacteria (Auto) NEG (NEG) White Blood Count 8.33 K/uL (4.8-10.8) Red Blood Count 4.02 M/uL (4.2-5.4) Hemoglobin 12.6 g/dL (12.0-16.0) Hematocrit 34.7 % (37-47) Mean Corpuscular Volume 86.3 fL (80-100) Mean Corpuscular Hemoglobin 31.3 pg (25-34) Mean Corpuscular Hemoglobin Concent 36.3 g/dl (32-36) Platelet Count 432 K/uL (130-400) Mean Platelet Volume 8.6 fL (7.4-10.4) Neutrophils (%) (Auto) 72.4 % Lymphocytes (%) (Auto) 17.3 % Monocytes (%) (Auto) 8.6 % Eosinophils (%) (Auto) 0.5 % Basophils (%) (Auto) 0.4 % Neutrophils # (Auto) 6.03 K/uL (1.4-6.5) Lymphocytes # (Auto) 1.44 K/uL (1.2-3.4) Monocytes # (Auto) 0.72 K/uL (0.11-0.59) Eosinophils # (Auto) 0.04 K/uL (0-0.5) Basophils # (Auto) 0.03 K/uL (0-0.2) RDW Standard Deviation 45.1 fL (36.4-46.3) RDW Coefficient of Variation 14.3 % (11.5-14.5) Immature Granulocyte % (Auto) 0.8 % Immature Granulocyte # (Auto) 0.07 K/uL (0.00-0.02) Anion Gap 10.0 mmol/L (3-11) Est Creatinine Clear Calc Drug Dose 52.3 ml/min Estimated GFR () 92.2 Estimated GFR (Non- 79.5 BUN/Creatinine Ratio 13.8 (10-20) Calcium Level 9.0 mg/dl (8.5-10.1) Phosphorus Level 2.6 mg/dl (2.5-4.9) Magnesium Level 2.1 mg/dl (1.8-2.4) Total Bilirubin 0.9 mg/dl (0.2-1) Direct Bilirubin 0.2 mg/dl (0-0.2) Aspartate Amino Transf (AST/SGOT) 12 U/L (15-37) Alanine Aminotransferase (ALT/SGPT) 17 U/L (12-78) Alkaline Phosphatase 49 U/L (45-117) Total Creatine Kinase 32 U/L (26-192) Creatine Kinase MB 0.9 ng/ml (0.5-3.6) Creatine Kinase MB Ratio 2.8 (0-3.0) Troponin I < 0.015 ng/ml (0-0.045) Total Protein 6.7 gm/dl (6.4-8.2) Albumin 3.6 gm/dl (3.4-5.0) Lipase 141 U/L (73-393) Thyroid Stimulating Hormone (TSH) 2.430 uIu/ml (0.300-4.500) Laboratory results as reviewed by me. Medications Administered Medications (Trade) Dose Ordered Sig/Oswald Route Start Time Stop Time Status Last Admin Dose Admin Sodium Chloride (Nss 500ml) 500 ml @ 999 mls/hr Q31M STAT IV 06/05/16 15:39 06/05/16 16:09 DC 06/05/16 15:39 999 MLS/HR ECG Indication: weakness Rate (beats per minute): 67 Rhythm: normal sinus Findings: no acute ischemic change, no ectopy ED Course 1348: The patient was evaluated in room C5. A complete history and physical exam was performed. 1539: Sodium Chloride 500 ml @ 999 mls/hr IV 1700: Reevaluated the patient. Discussed results and discharge instructions: The patient and her family verbalized understanding and agreement. The patient is ready for discharge. Medical Decision Differential: Sepsis, Infectious (UTI/Pneumonia/Meningitis/etc), Metabolic/ Electrolyte Abnormality, Cardiac, Hepatic, Endocrine, Toxicologic, Neurologic, amongst other pathologies entertained. 89 yr old female arrives with nausea, generalized weakness and not eating. By exam no acute findings other than mild dehydration. She has mild hypoNa which has been persistent and is not significantly changed. Labs unremarkable otherwise. No evidence of infection and she is not in acute discharge. There is no indication for admission at this time. She was given NSS bolus and Case Management in to discuss with her options. Will set up close PCP follow up and aware RTED at any time if worsening or other concerns. I suspect there is some underlying depression which has lead to poor appetite and weakness. She is able to ambulate and is not septic nor other acute findings. Impression Primary Impression: Dehydration Additional Impressions: Fatigue Hyponatremia Scribe Attestation The scribe's documentation has been prepared under my direction and personally reviewed by me in its entirety. I confirm that the note above accurately reflects all work, treatment, procedures, and medical decision making performed by me. Departure Information Dispostion Home / Self-Care Referrals Gema Santiago M.D. (PCP) Patient Instructions My [facility] Additional Instructions Please follow up with your primary care provider in next few days. Case Management will help with this. Return if fevers, worsening weakness, falls, vomiting, abdominal pain, passing out or other concerning symptoms. We are always here to help. Problem Qualifiers Additional Impressions: Fatigue Fatigue type: unspecified Qualified Codes: R53.83 - Other fatigue
[2016-06-05 17:04] VITALS: BP 169/72; PULSE 70; O2SAT 98
[2016-09-30] MEDS ORDERED: ACET-1256 PO (14:09)
[2016-10-04] MEDS ORDERED: CLIN300C2 PO (10:06)
[2016-10-07] MEDS ORDERED: RXC5 PO (09:41)
== END 2016-06-05 17:05 | disposition home or self-care (01) ==
LOC: C.EDB 12:13 → C.EDC 17:05
DX: R53.83 Other fatigue (principal); E87.1 Hypo-osmolality and hyponatremia; E03.9 Hypothyroidism, unspecified; Z83.3 Family history of diabetes mellitus

== ENCOUNTER → 2016-06-08 | Outpatient (CLI) | payer BC ==
[~2016-06-08] MED LIST changes: +ACET-1256 PO; +CLIN300C2 PO; +CRAN500C2 PO; +RXC5 PO
== END | disposition home or self-care (01) ==
LOC: C.LABPVFM 14:41
PROVIDERS: ATTEND Family Medicine
DX: R30.0 Dysuria (principal)

== ENCOUNTER → 2016-07-27 | Outpatient (CLI) | payer BC ==
[2016-07-27 15:03] LABS: ALT/SGPT 28 U/L (12-78); AST/SGOT 13 U/L (15-37); BLOOD UREA NITROGEN 15 mg/dl (7-18); BUN/CREATININE RATIO 18.6 (10-20); CALCIUM 9.7 mg/dl (8.5-10.1); CARBON DIOXIDE 29 mmol/L (21-32); CHLORIDE 102 mmol/L (98-107); CREATININE 0.82 mg/dl (0.60-1.20); GLUCOSE 102 mg/dl (70-99); POTASSIUM 4.3 mmol/L (3.5-5.1); SODIUM 137 mmol/L (136-145)
[2016-07-27 15:14] LABS: ALB/GLOB RATIO 1.1 (0.9-2); ALKALINE PHOSPHATASE 49 U/L (45-117)
== END | disposition home or self-care (01) ==
LOC: C.LABPVFM 08:19
PROVIDERS: ATTEND Family Medicine
DX: M81.0 Age-related osteoporosis without current pathological fracture (principal); F32.9 Major depressive disorder, single episode, unspecified; E03.9 Hypothyroidism, unspecified; E55.9 Vitamin D deficiency, unspecified

== ENCOUNTER 2016-10-06 10:20 | Inpatient (IN) | payer BC, OTHER ==
[2016-09-30 13:44] VITALS: BMI 26.0
--- NOTE | 2016-09-30 14:26 | PAT Medication Instructions ---
Service Date Sep 30, 2016. Current Home Medication List Acetaminophen (Tylenol), 500 MG PO DAILY PRN for Pain Calcium Carbonate-Cholecalcife (Caltrate 600+D), 1.5 TAB PO QDL Cholecalciferol (D-5000), 1 TAB PO QDL Cranberry (Vaccinium Macrocarp (Cranberry), 1 CAP PO QDL Levothyroxine Sodium (Levothyroxine Sodium), 1 TAB PO QAM Lorazepam (Ativan), 0.25 MG PO HS PRN for Sleep Omeprazole (Omeprazole), 1 TAB PO HS Paroxetine (Paxil), 20 MG PO QPM Medication Instructions For Your Scheduled Surgery - Hold the following medications starting 10/01/16: Cranberry (Vaccinium Macrocarp (Cranberry), 1 CAP PO QDL - Hold the following medications the morning of surgery: Cholecalciferol (D-5000), 1 TAB PO QDL Calcium Carbonate-Cholecalcife (Caltrate 600+D), 1.5 TAB PO QDL - Take the following medications the morning of surgery with a sip of water: Levothyroxine Sodium (Levothyroxine Sodium), 1 TAB PO QAM Acetaminophen (Tylenol), 500 MG PO DAILY PRN for Pain (if needed) - Take the following medications as scheduled the night before surgery: Lorazepam (Ativan), 0.25 MG PO HS PRN for Sleep (if needed) Omeprazole (Omeprazole), 1 TAB PO HS Paroxetine (Paxil), 20 MG PO QPM Acetaminophen (Tylenol), 500 MG PO DAILY PRN for Pain (if needed) If you have any questions please call us at [phone] or [phone] or [phone]
--- NOTE | 2016-09-30 15:15 | DIAGNOSTIC IMAGING REPORT ---
CHEST PREADMISSION(PA/LAT) CLINICAL HISTORY: Preoperative evaluation. COMPARISON STUDY: Chest radiograph June 05, 2016. FINDINGS: Lung volumes are normal. There is no pneumothorax or pleural effusion. There is no evidence of pulmonary edema. Cardiomediastinal silhouette is stable. Widening of the right paratracheal stripe is unchanged since earlier studies. Minimal left basilar opacity may reflect atelectasis. There is no consolidation to suggest pneumonia. IMPRESSION: No acute cardiopulmonary findings. Electronically signed by: Wilfred Schofield M.D. 09/30/2016 3:14 PM Dictated Date/Time: 09/30/2016 3:12 PM
[2016-09-30 15:22] LABS: BASO % 0.5 %; BASO ABS # 0.04 K/uL (0-0.2); COMPLETE YES; EOS % 1.3 %; HEMATOCRIT 35.5 % (37-47); IG% 0.4 %; LYMPH % 23.1 %; LYMPH ABS # 1.93 K/uL (1.2-3.4); MEAN CELL VOLUME 89.2 fL (80-100); MEAN CORPUSCULAR HEMOGLOBIN 30.4 pg (25-34); MEAN CORPUSCULAR HGB CONC 34.1 g/dl (32-36); MONO % 10.8 %; NEUT % 63.9 %; PLATELET COUNT 371 K/uL (130-400); RED BLOOD COUNT 3.98 M/uL (4.2-5.4); WHITE BLOOD COUNT 8.36 K/uL (4.8-10.8)
[2016-09-30 15:28] LABS: URINE APPEARANCE TURBID (CLEAR); URINE BILIRUBIN NEG (NEG); URINE COLOR YELLOW; URINE NITRITE POS (NEG); UROBILINOGEN NEG (NEG)
[2016-09-30 15:32] LABS: MANUAL MICROSCOPIC REQUIRED? NO; REVIEW REQ? NO
[2016-09-30 15:34] LABS: PROTHROMBIN TIME (PATIENT) 10.7 SECONDS (9.0-12.0)
[2016-09-30 15:37] LABS: BUN/CREATININE RATIO 29.8 (10-20); CALCIUM 9.7 mg/dl (8.5-10.1); CREATININE 0.72 mg/dl (0.60-1.20); POTASSIUM 4.6 mmol/L (3.5-5.1)
[2016-10-06] VITALS (7 sets, daily range): BP systolic 105–142; BP diastolic 69–83; PULSE 56–74; TEMP 36.3–36.5; O2SAT 91–100; Ht 152.4 cm; Wt 61.4 kg
[~2016-10-06] VITALS: Ht 152.4 cm; Wt 61.4 kg
[~2016-10-06 10:20] MED LIST changes: -ACET-1311 PO; +ACETAMINOPHEN 500 MG TAB PO SCH; +ATROPINE SULFATE 0.1 MG/ML 5ML SYR IV PRN; +CEFAZOLIN 2000 MG/60 ML D5W 60 ML IV SCH; +EpHEDrine SULFATE INJ 50 MG/ML AMP IV PRN; +FAMOTIDINE 20 MG TAB PO SCH; +FENTANYL CITRATE INJ 50 MCG/1 ML 2 ML VIAL IV PRN; +GABAPENTIN 300 MG CAP PO SCH; +HYDROmorphone INJ 1 MG/ML SYR IV PRN; +LACTATED RINGER'S 1000ML 1,000 ML IV SCH; +ONDANSETRON INJ 2 MG/ML 2 ML VIAL IV PRN; +ROPIVACAINE 0.5% 5 MG/ML 30 ML VIAL ONE; -RXC5 PO
[2016-10-06] MEDS ORDERED: ONDANSETRON INJ 2 MG/ML 2 ML VIAL ONE (10:39)
[2016-10-06] MEDS ORDERED: LIDOCAINE HCL 2% 2 ML VIAL (20MG/ML) ONE (10:39)
[2016-10-06] MEDS ORDERED: PROPOFOL IV EMULSION 10 MG/ML 20 ML VIAL IV ONE (10:39)
[2016-10-06] MEDS ORDERED: FENTANYL CITRATE INJ 50 MCG/1 ML 2 ML VIAL ONE (10:39)
[2016-10-06] MEDS ORDERED: MIDAZOLAM HCL 1 MG/ML 2ML VIAL ONE (10:39)
[2016-10-06] MEDS ORDERED: NEOSTIGMINE METHYLSULFATE 5 MG/5 ML SYR ONE (10:39)
[2016-10-06] MEDS ORDERED: DEXAMETHASONE SOD INJ 4 MG/ML VIAL ONE (10:39)
[2016-10-06] MEDS ORDERED: GLYCOPYRROLATE INJ 0.2 MG/ML VIAL ONE (10:39)
[2016-10-06] MEDS ORDERED: ROCURONIUM BROMIDE 10 MG/ML 5 ML VIAL ONE (10:39)
[2016-10-06] MEDS ORDERED: BACITRACIN 50000 UNIT VIAL ONE (11:54)
[2016-10-06] MEDS ORDERED: ORTHO JOINT ANESTHETIC ONE (11:54)
[2016-10-06] MEDS ORDERED: ROPIVACAINE 5MG/ML 30 ML 150 MG, BUPIVACAINE/EPINEPHR 0.5% MPF 30 ML, KETOROLAC TROMETH... INFIL SCH ×7 (12:00)
--- NOTE | 2016-10-06 12:15 | History & Physical Bridge Note ---
H&P Re-Evaluation Bridge Note: I have examined the patient, reviewed the History & Physical and in the interval since the performance of the History & Physical I have noted the following changes of clinical significance: No changes noted
--- NOTE | 2016-10-06 12:17 | History and Physical ---
History & Physical Date Oct 06, 2016. Chief Complaint Cuff arthropathy Right shoulder History of Present Illness The patient is a 89 year old female with complaints of chronic Right shoulder pain and weakness Past Medical/Surgical History Medical Problems: (1) Hypothyroid Additional History Hepatic Disease: No Endocrine Disorder: No Kidney Disease: No Hypertension: No Heart Disease: No Bleeding Tendencies: No Infectious Diseases: No Allergies Coded Allergies: Sulfa Drugs (Verified Allergy, Mild, RASH, 10/06/16) Cephalexin (Verified Adverse Reaction, Intermediate, GI UPSET, 10/06/16) Codeine (Verified Adverse Reaction, Mild, "FELT LOOPY", 10/06/16) Home Medications Scheduled Calcium Carbonate-Cholecalcife (Caltrate 600+D), 1.5 TAB PO QDL Cholecalciferol (D-5000), 1 TAB PO QDL Clindamycin Hcl (Cleocin), Unknown Dose PO Q6H Cranberry (Vaccinium Macrocarp (Cranberry), 1 CAP PO QDL Levothyroxine Sodium (Levothyroxine Sodium), 1 TAB PO QAM Omeprazole (Omeprazole), 1 TAB PO HS Paroxetine (Paxil), 20 MG PO QPM Scheduled PRN Acetaminophen (Tylenol), 500 MG PO DAILY PRN for Pain Lorazepam (Ativan), 0.25 MG PO HS PRN for Sleep Physical Examination Skin: warm/dry, no rash Eyes: normal inspection, EOMI, sclerae normal ENT: normal ENT inspection, pharynx normal Head: normocephalic, atraumatic Neck: supple, no adenopathy, trachea midline Respiratory/Chest: lungs clear, normal breath sounds, no respiratory distress Cardiovascular: regular rate, rhythm, no edema, no murmur Abdomen / GI: normal bowel sounds, non tender Back: normal inspection Extremities: normal inspection, normal range of motion Neurologic/Psych: no motor/sensory deficits, alert, normal reflexes, oriented x 3 Diagnosis Cuff arthropathy Right shoulder Plan of Treatment Right reverse total shoulder
--- NOTE | 2016-10-06 14:21 | [facility] Post Operative Brief Note ---
Immediate Operative Summary Operative Date Oct 06, 2016. Pre-Operative Diagnosis Cuff arthropathy Right shoulder Post-Operative Diagnosis Cuff arthropathy Right shoulder Procedure(s) Performed Right Reverse Total Shoulder Arthroplasty Surgeon Dr. Sanju Vanegas Rn Wellness Surgeon(s) Mk Felipe PA-C Estimated Blood Loss 250Ml Findings as above Specimens Specimen A. Right humeral head Complication(s) None Disposition Recovery Room / PACU
[2016-10-06] MEDS ORDERED: SOD PHOSPHATE/SOD BIPHOSPHATE ENEMA 132 ML BTL PR PRN (14:30)
[2016-10-06] MEDS ORDERED: NALOXONE HCL 0.4 MG/1 ML VIAL/CARP IV PRN (14:30)
[2016-10-06] MEDS ORDERED: BISACODYL 10 MG SUPP PR PRN (14:30)
[2016-10-06] MEDS ORDERED: METOCLOPRAMIDE HCL INJ 5 MG/ML 2 ML VIAL IV PRN (14:30)
[2016-10-06] MEDS ORDERED: ONDANSETRON INJ 2 MG/ML 2 ML VIAL IV PRN (14:30)
[2016-10-06] MEDS ORDERED: MAGNESIUM HYDROXIDE SUSP 30 ML UDC PO PRN (14:30)
[2016-10-06] MEDS ORDERED: MoRPHine SULFATE 2 MG/ML CARP IV PRN (14:30)
--- NOTE | 2016-10-06 15:00 | DIAGNOSTIC IMAGING REPORT ---
RIGHT SHOULDER MIN 2 VIEWS ROUTINE CLINICAL HISTORY: Post shoulder surgery Right postoperative evaluation COMPARISON: None. DISCUSSION: Anatomic alignment status post total right shoulder replacement. Good contact between prosthetic and underlying bone. Surgical drains are in position. IMPRESSION: Anatomic alignment status post total right shoulder replacement The above report was generated using voice recognition software. It may contain grammatical, syntax or spelling errors. Electronically signed by: Vel Meyer M.D. 10/06/2016 2:59 PM Dictated Date/Time: 10/06/2016 2:58 PM
--- NOTE | 2016-10-06 15:26 | Anesthesiology Progress Note ---
Anesthesia Post Op Note Date & Time Oct 06, 2016 at 15:25 Vital Signs Pain Intensity: 0 Vital Signs Past 12 Hours Date Time Temp Pulse Resp B/P (MAP) Pulse Ox O2 Delivery O2 Flow Rate FiO2 10/06/16 15:14 36.6 10/06/16 15:11 134/68 10/06/16 15:10 67 14 98 10/06/16 15:10 68 14 10/06/16 15:06 136/64 10/06/16 15:05 68 15 98 10/06/16 15:05 68 15 10/06/16 15:01 127/62 10/06/16 15:00 66 17 99 10/06/16 15:00 67 17 10/06/16 14:56 149/64 10/06/16 14:55 67 16 99 10/06/16 14:55 67 16 10/06/16 14:51 136/72 10/06/16 14:50 71 14 10/06/16 14:50 71 14 100 10/06/16 14:46 152/69 10/06/16 14:45 70 17 100 10/06/16 14:45 70 17 10/06/16 14:40 83 20 10/06/16 14:40 78 20 153/68 80 10/06/16 14:35 36.7 68 16 153/68 98 Mask 10 10/06/16 10:57 36.4 56 18 138/82 97 Room Air Notes Mental Status: alert / awake / arousable, participated in evaluation Pt Amnestic to Procedure: Yes Nausea / Vomiting: adequately controlled Pain: adequately controlled Airway Patency, RR, SpO2: stable & adequate BP & HR: stable & adequate Hydration State: stable & adequate Anesthetic Complications: no major complications apparent
[2016-10-06] MEDS: TRANEXAMIC ACID INJ 1,000 MG in SODIUM CHLORIDE 0.9% 100ML 100 ML IV SCH ×2 (16:13→16:14)
[2016-10-06] MEDS: POTASSIUM CHLORIDE INJ 10 MEQ in SODIUM CHLORIDE 0.9% 1000ML 1,000 ML IV SCH (16:57)
[2016-10-06] MEDS: CLINDAMYCIN IV 600 MG in DEXTROSE 5% 50ML 50 ML IV SCH (20:48)
[2016-10-06] MEDS: SENNA 8.6 MG TAB PO SCH (21:00)
[2016-10-06] MEDS: DOCUSATE SODIUM 100 MG CAP PO SCH (21:17)
[2016-10-06] MEDS: PAROXETINE 20 MG TAB PO SCH (21:17)
[2016-10-06] MEDS: ACETAMINOPHEN IV 1,000 MG in EMPTY BAG 0 ML IV SCH (21:20)
[2016-10-07] VITALS (7 sets, daily range): BP systolic 100–162; BP diastolic 64–84; PULSE 70–102; TEMP 36.4–37; O2SAT 90–96
[2016-10-07] MEDS: POTASSIUM CHLORIDE INJ 10 MEQ in SODIUM CHLORIDE 0.9% 1000ML 1,000 ML IV SCH ×3 (03:07→21:59)
[2016-10-07] MEDS: CLINDAMYCIN IV 600 MG in DEXTROSE 5% 50ML 50 ML IV SCH (03:07)
[2016-10-07 06:06] LABS: HEMATOCRIT 31.3 % (37-47); MEAN CELL VOLUME 88.4 fL (80-100); MEAN CORPUSCULAR HEMOGLOBIN 29.7 pg (25-34); MEAN CORPUSCULAR HGB CONC 33.5 g/dl (32-36); MEAN PLATELET VOLUME 8.7 fL (7.4-10.4); PLATELET COUNT 341 K/uL (130-400); RED BLOOD COUNT 3.54 M/uL (4.2-5.4); WHITE BLOOD COUNT 16.99 K/uL (4.8-10.8)
[2016-10-07] MEDS: ACETAMINOPHEN IV 1,000 MG in EMPTY BAG 0 ML IV SCH ×2 (06:13→13:27)
[2016-10-07] MEDS: LEVOTHYROXINE 50 MCG TAB PO SCH (06:31)
[2016-10-07 06:32] LABS: BUN/CREATININE RATIO 15.5 (10-20); CALCIUM 8.1 mg/dl (8.5-10.1); CREATININE 0.84 mg/dl (0.60-1.20); POTASSIUM 4.9 mmol/L (3.5-5.1)
[2016-10-07] MEDS: DOCUSATE SODIUM 100 MG CAP PO SCH ×2 (08:01→22:33)
[2016-10-07] MEDS: OXYCODONE HCL IR 5 MG TAB (IMMEDIATE RELEASE) PO PRN ×4 (08:01→22:34)
[2016-10-07] MEDS: MULTIVITAMIN TAB PO SCH (08:02)
[2016-10-07] MEDS: PANTOprazole SOD 40 MG TAB PO SCH (08:02)
--- NOTE | 2016-10-07 08:07 | Anesthesiology Progress Note ---
Anesthesia Post Op Note Date & Time Oct 07, 2016 at 08:06 Vital Signs Pain Intensity: 5.0 Vital Signs Past 12 Hours Date Time Temp Pulse Resp B/P (MAP) Pulse Ox O2 Delivery O2 Flow Rate FiO2 10/07/16 07:28 Room Air 10/07/16 06:57 36.4 70 16 145/79 (101) 93 Room Air 10/07/16 03:30 36.4 73 16 150/82 (104) 94 Room Air 10/07/16 00:00 Nasal Cannula 2.0 10/06/16 23:08 36.4 73 20 142/83 (102) 97 Room Air Notes Mental Status: alert / awake / arousable, participated in evaluation Pt Amnestic to Procedure: Yes Nausea / Vomiting: adequately controlled Pain: adequately controlled Airway Patency, RR, SpO2: stable & adequate BP & HR: stable & adequate Hydration State: stable & adequate Anesthetic Complications: no major complications apparent
[2016-10-07] MEDS ORDERED: RXC5 PO (09:41)
--- NOTE | 2016-10-07 09:42 | Discharge Instructions ---
Discharge Instructions Date of Service Oct 07, 2016. Admission Reason for Admission: Right Shoulder Full Thickness Rotator Cuff Tear Discharge Discharge Diagnosis / Problem: Right reverse total shoulder Discharge Goals Goal(s): Decrease discomfort, Improve function Activity Recommendations Activity Limitations: as noted below . Instructions / Follow-Up Instructions / Follow-Up Activity and Therapy Recommendations: * Wear your sling for 3 weeks, unless otherwise instructed. You may remove your sling to shower and to dress, but otherwise, you should be in your sling at all times, including while sleeping * The shoulder replacement is very stable and you can use your hand while in the sling * Physical Therapy should start about 3-5 days from your day of surgery. Therapy will last about 8-12 weeks * You were shown a series of exercises in the hospital. Do these exercises daily including the exercises you were shown in physical therapy. Medications: * Narcotic You will likely be sent home from the hospital with a prescription for the narcotic pain medication that worked best throughout your stay. * Other medications may be prescribed for specific circumstances. If you have any questions, please call the office at . * Resume previous home medications unless otherwise instructed Dressing Care: You will likely have a Prineo dressing covering your incision. This looks like a glued on clear mesh dressing. Do not remove this dressing until you follow- up in my office in 2-3 weeks. Its pretty hard to peel it off. You may leave the Prineo dressing uncovered or cover it if it is draining a little bit. No further dressing care is required Showering: You may shower 3 days from the day of surgery. Leave the Prineo dressing intact and let the soapy shower water run over it. Do not scrub or soak the dressing or the incision. Things To Watch For: * Drainage from the incision site that occurs more than one week after your surgery. * Increased redness at the incision site. * Fever above 102 degrees Fahrenheit. * Unusual chest pain or shortness of breath. * Call [facility] at with any of the above problems Follow-Up Visit: Follow-up with Dr. Vanegas 2-3 weeks after your day of surgery. An appointment was probably scheduled when you signed-up for surgery in the office. If you have any questions call Office Instructions: More detailed instructions as well as Frequently Asked Questions were provided in a folder by our office when you signed-up for surgery. Please review these instructions when you get home. If you have any further questions or concerns, please feel free to call the office at [phone] Current Hospital Diet Patient's current hospital diet: Regular Diet Discharge Diet Recommended Diet: Regular Diet Procedures Procedures Performed: Right Reverse Total Shoulder Arthroplasty Pending Studies Studies pending at discharge: no Medical Emergencies . Who to Call and When: Medical Emergencies: If at any time you feel your situation is an emergency, please call 911 immediately. . Non-Emergent Contact Non-Emergency issues call your: Surgeon Call Non-Emergent contact if: wound has increased drainage, wound has increased redness . "Provider Documentation" section prepared by Sanju Vanegas. . VTE Core Measure Inpt VTE Proph given/why not?: Treatment not indicated
--- NOTE | 2016-10-07 10:01 | PROGRESS NOTE ---
DATE: 10/07/2016 DATE: 10/07/2016. CHIEF COMPLAINT: Status post reverse right shoulder arthroplasty postop day #1. PROGRESS: Cee was seen and examined at bedside today. She was having some soreness in the shoulder. She took a single oxycodone about half hour ago and seems to be helping some. She worked well with physical therapy. Family was in the room with her. She has no other complaints. PHYSICAL EXAMINATION: RIGHT SHOULDER: The dressing is clean and dry and the drain is to suction. She is wearing her sling as instructed. Her radial, median and ulnar nerves were checked and intact at her wrist. Her axillary nerve was not checked yet. LABORATORY DATA: She has an H&H today of 10.5 and 31.3. Her white count 16.9. Her glucose is 118. Her vital signs are stable on room air. She is a little hypertensive. She is voiding on her own and has not had a bowel movement yet. X-rays of the right shoulder show the prosthesis to be in anatomic alignment without any evidence of fracture, dislocation or loosening. IMPRESSION: Status post reverse right shoulder arthroplasty postop day #1. PLAN: At this point, she is doing well. She is having a little bit of soreness in her shoulder. I talked with her and her family that she is welcome to stay today given her age for pain control or she can be discharged to home. The discharge instructions have been written and we will see how she does throughout the day today.
[2016-10-07] MEDS: SENNA 8.6 MG TAB PO SCH (22:34)
[2016-10-07] MEDS: PAROXETINE 20 MG TAB PO SCH (22:34)
[2016-10-07] MEDS ORDERED: NURSING VERBAL MED ORDER ONE (23:45)
[2016-10-08 00:30] VITALS: BP 145/82; PULSE 88; TEMP 37.1; O2SAT 94
[2016-10-08] MEDS ORDERED: MoRPHine SULFATE 2 MG/ML CARP IV PRN (00:30)
[2016-10-08] MEDS: LEVOTHYROXINE 50 MCG TAB PO SCH (05:34)
[2016-10-08 05:50] VITALS: PULSE 88; TEMP 36.9; O2SAT 88
[2016-10-08 05:51] VITALS: O2SAT 95
[2016-10-08] MEDS: OXYCODONE HCL IR 5 MG TAB (IMMEDIATE RELEASE) PO PRN ×2 (05:55→09:56)
[2016-10-08 06:24] LABS: HEMATOCRIT 28.8 % (37-47); MEAN CELL VOLUME 88.6 fL (80-100); RED BLOOD COUNT 3.25 M/uL (4.2-5.4); WHITE BLOOD COUNT 14.18 K/uL (4.8-10.8)
[2016-10-08 06:25] LABS: MEAN CORPUSCULAR HEMOGLOBIN 31.1 pg (25-34); MEAN CORPUSCULAR HGB CONC 35.1 g/dl (32-36); MEAN PLATELET VOLUME 9.3 fL (7.4-10.4); PLATELET COUNT 324 K/uL (130-400)
[2016-10-08 06:57] LABS: BUN/CREATININE RATIO 16.7 (10-20); CALCIUM 7.9 mg/dl (8.5-10.1); CREATININE 0.64 mg/dl (0.60-1.20); POTASSIUM 4.2 mmol/L (3.5-5.1)
[2016-10-08 07:59] VITALS: BP 133/81; PULSE 86; TEMP 37.1; O2SAT 97
[2016-10-08] MEDS: POTASSIUM CHLORIDE INJ 10 MEQ in SODIUM CHLORIDE 0.9% 1000ML 1,000 ML IV SCH (08:20)
[2016-10-08] MEDS: MULTIVITAMIN TAB PO SCH (08:35)
[2016-10-08] MEDS: PANTOprazole SOD 40 MG TAB PO SCH (08:35)
[2016-10-08] MEDS: DOCUSATE SODIUM 100 MG CAP PO SCH (08:36)
--- NOTE | 2016-10-08 09:57 | PROGRESS NOTE ---
DATE: 10/08/2016 CHIEF COMPLAINT: Status post reverse right shoulder arthroplasty, postop day #2. PROGRESS: Cee was seen and examined at bedside today. She was sitting up in a chair. She was having some soreness in her shoulder but she says everything hurts. She says everything has been hurting for a long time. She has been to the Emergency Room multiple times over the last 6 months with a diagnosis of everything hurts. Her shoulder was her main source of pain. After deep discussions with the family, I did a reverse shoulder replacement hoping to resolve her main source of pain with time. Her shoulder is sore but she still feels she hurts everywhere. She has a very lethargic affect. This is unchanged for as long as I have known her in the office. PHYSICAL EXAMINATION: RIGHT SHOULDER: The dressing is clean and dry. The drain has been removed. She is wearing her sling as instructed. Her radial, median and ulnar nerves are intact at her hand and wrist. She is sitting upright in a chair. She seems to be breathing fine on her own. LABORATORY DATA: She has an H&H today of 10.1 and 28.8. Her glucose is 105. VITAL SIGNS: All stable on room air. She is voiding on her own and has already had a bowel movement. IMPRESSION: Status post reverse right shoulder arthroplasty, postop day #2. PLAN: Her lab values look okay. She is voiding on her own and she has already had a bowel movement. Her vital signs are all stable on room air. She still has a lethargic affect but she has had this affect for as long as I have known her. Her shoulder is still sore which is expected from the surgery. She did have a couple episodes of confusion last night but she also gets confused at home at times. I did discuss everything with her daughter. I told her that if the family was comfortable taking care of her, that she is medically okay for discharge to home. Maybe being home will make her feel a little better as I do not have any true reason to keep her in the hospital. I also told her that if the family is not comfortable, then we could look at extended care or [place] [facility] placement. She is going to discuss it with her family and Cee's other daughter will be in later today to possibly take her home or think about [place] [facility] placement. We will continue to follow closely.
--- NOTE | 2016-10-13 17:39 | DISCHARGE SUMMARY ---
DISCHARGE DIAGNOSIS: Rotator cuff arthropathy of the right shoulder. PROCEDURE: Right reverse total shoulder arthroplasty on 10/06/[address] Sanju Vanegas. DISCHARGE INSTRUCTIONS: 1. Oxycodone 5 mg every 4 hours as needed for pain. 2. Tylenol 500 mg as needed. 3. Cleocin every 6 hours as needed. 4. Synthroid 50 mcg daily. 5. Ativan 0.25 mg as needed for sleep. 6. Omeprazole 20 mg at night. 7. Paxil 20 mg daily. 8. Vitamin D 5000 units daily. 9. Caltrate 600 Plus D. 10. Right arm sling for 3 weeks. 11. Follow up with Dr. Vanegas in 2 weeks. 12. Call the office of Dr. Vanegas with any questions or concerns. HOSPITAL COURSE: Cee is a pleasant 89-year-old female whom I have been treating for chronic right shoulder pain. X-rays and clinical examination were diagnostic for rotator cuff arthropathy of the right shoulder. After failing extensive conservative treatment and after extensive discussions with her family regarding her age she elected to proceed with reverse right shoulder arthroplasty. On 10/06/2016 she arrived at [facility] and underwent a reverse right shoulder arthroplasty without complications. She had a general anesthetic and a right interscalene nerve block. Postoperatively, she was discharged to general orthopedic floor. On postop day #1, her H&H was stable at 10.5 and 31.3. She was slow to work with physical therapy. She said she was having a lot of soreness in her shoulder. I had multiple discussions with her family. On postop day #2, the dressing was changed, the drain was pulled. She continued to say that she had a lot of soreness in her shoulder and multiple bodyaches; however, her H&H was stable at 10.1 and 28.8. Her vital signs were all stable on room air. She was voiding on her own and had a bowel movement. After discussions with her family, we felt she was better treated at home and she was subsequently discharged to home with the above instructions.
== END 2016-10-08 10:06 | disposition home or self-care (01) | DRG 483 ==
LOC: C.ACU 10:20 → C.3E 12:06 → UNDOADMIN 14:25 → ENRESERV 15:20
PROVIDERS: ADMIT Orthopaedic Surgery; ATTEND Orthopaedic Surgery
PROC: 0RRJ00Z Replacement of Right Shoulder Joint with Reverse Ball and Socket Synthetic Substitute, Open Approach (ICD-10-PCS; principal; 2016-10-06 12:30)
DX: M19.011 Primary osteoarthritis, right shoulder (principal); E03.9 Hypothyroidism, unspecified; Z79.899 Other long term (current) drug therapy

== ENCOUNTER → 2016-10-25 | Outpatient (CLI) | payer BC, OTHER ==
[~2016-10-25] MED LIST changes: -ACETAMINOPHEN 500 MG TAB PO SCH; -ATROPINE SULFATE 0.1 MG/ML 5ML SYR IV PRN; -CEFAZOLIN 2000 MG/60 ML D5W 60 ML IV SCH; -EpHEDrine SULFATE INJ 50 MG/ML AMP IV PRN; -FAMOTIDINE 20 MG TAB PO SCH; -FENTANYL CITRATE INJ 50 MCG/1 ML 2 ML VIAL IV PRN; -GABAPENTIN 300 MG CAP PO SCH; -HYDROmorphone INJ 1 MG/ML SYR IV PRN; -LACTATED RINGER'S 1000ML 1,000 ML IV SCH; -ONDANSETRON INJ 2 MG/ML 2 ML VIAL IV PRN; -ROPIVACAINE 0.5% 5 MG/ML 30 ML VIAL ONE; +RXC5 PO
== END | disposition home or self-care (01) ==
LOC: C.LABPVFM 12:08
PROVIDERS: ATTEND Family Medicine
DX: R35.0 Frequency of micturition (principal)

== ENCOUNTER → 2016-11-23 | Outpatient (CLI) | payer BC ==
[2016-11-23 17:19] LABS: URINE APPEARANCE CLEAR (CLEAR); URINE BILIRUBIN NEG (NEG); URINE COLOR YELLOW; URINE EPITHELIAL CELL AUTO >30 /lpf (0-5); URINE NITRITE NEG (NEG); URINE SPECIFIC GRAVITY 1.021 (1.000-1.030); UROBILINOGEN NEG (NEG)
[2016-11-23 17:25] LABS: MANUAL MICROSCOPIC REQUIRED? NO; REVIEW REQ? NO
== END | disposition home or self-care (01) ==
LOC: C.LABSPEC 16:40
PROVIDERS: ATTEND Family Medicine
DX: N39.0 Urinary tract infection, site not specified (principal)

== ENCOUNTER → 2016-12-15 | Outpatient (CLI) | payer BC | END | disposition home or self-care (01) | LOC: C.LABSPEC 10:35 | PROVIDERS: ATTEND Urology | DX: R31.29 Other microscopic hematuria (principal); N81.10 Cystocele, unspecified ==

== ENCOUNTER → 2016-12-23 | Outpatient (CLI) | payer BC ==
[2016-12-23 17:57] LABS: ALT/SGPT 21 U/L (12-78); AST/SGOT 16 U/L (15-37); BLOOD UREA NITROGEN 16 mg/dl (7-18); BUN/CREATININE RATIO 19.2 (10-20); CALCIUM 9.4 mg/dl (8.5-10.1); CARBON DIOXIDE 28 mmol/L (21-32); CHLORIDE 101 mmol/L (98-107); CREATININE 0.83 mg/dl (0.60-1.20); GLUCOSE 89 mg/dl (70-99); POTASSIUM 4.5 mmol/L (3.5-5.1); SODIUM 134 mmol/L (136-145)
[2016-12-23 18:00] LABS: ALKALINE PHOSPHATASE 60 U/L (45-117)
== END | disposition home or self-care (01) ==
LOC: C.LABPVFM 11:00
PROVIDERS: ATTEND Nurse Practitioner Adult Health
DX: N81.10 Cystocele, unspecified (principal); R31.29 Other microscopic hematuria; N39.0 Urinary tract infection, site not specified; F32.9 Major depressive disorder, single episode, unspecified; M81.0 Age-related osteoporosis without current pathological fracture; K21.0 Gastro-esophageal reflux disease with esophagitis; E03.9 Hypothyroidism, unspecified; E87.1 Hypo-osmolality and hyponatremia

== ENCOUNTER → 2017-01-06 | Outpatient (CLI) | payer BC ==
[~2017-01-06] MED LIST changes: +OPTIRAY 320 IV PRN
--- NOTE | 2017-01-06 11:27 | DIAGNOSTIC IMAGING REPORT ---
CT UROGRAM CLINICAL HISTORY: Microscopic hematuria. Vaginal wall prolapse. COMPARISON STUDY: No priors. TECHNIQUE: Before and following the IV administration of 119 cc of Optiray 320, CT urogram of the abdomen and pelvis is performed from the lung bases to the proximal femora. Images are reviewed in the axial, sagittal, and coronal planes. IV contrast was administered without complication. A dose lowering technique was utilized adhering to the principles of ALARA. CT DOSE: 1466.70 mGycm FINDINGS: Lung bases: The heart is normal in size and without pericardial effusion. Fat-containing Bochdalek hernias are present at both lung bases. The lung bases are otherwise clear. A tiny hiatal hernia is identified. Liver: The contrast-enhanced liver is normal in size, contour, and attenuation. There is no intrahepatic biliary ductal dilatation. The hepatic veins and portal veins are patent. Gallbladder: Unremarkable. Spleen: Normal in size and attenuation. Pancreas: Moderately atrophic and grossly unremarkable. Adrenal glands: A 1.4 cm left adrenal nodule meets CT criteria for a fat-containing adenoma. The right adrenal gland is normal in appearance. Kidneys and ureters: The contrast enhanced kidneys are atrophic. There is mild left hydronephrosis. The left ureter is normal in caliber and no obstructing lesion is seen. There is no hydronephrosis on the right. There are bilateral extrarenal pelvises. There are no renal calculi identified on the unenhanced images. The kidneys enhance symmetrically. There is pooling of contrast in the left renal pelvis with slightly delayed filling of the left ureter. A 2.2 cm cyst is noted in the lower pole of the left kidney. There is no enhancing renal cortical mass lesion identified. There is no evidence of urothelial lesion within the renal pelvis bilaterally or along the course of either ureter. The ureters are incompletely opacified. Abdominal vasculature: The abdominal aorta is normal in course and caliber noting mild atherosclerotic calcification. Bowel: There is moderate to advanced colonic diverticulosis without CT evidence of acute diverticulitis. No bowel obstruction is seen. The appendix is well-visualized and normal. Peritoneum: There is no intraperitoneal free air or abdominal ascites. Lymphadenopathy: None. Pelvic viscera: The bladder is normal as visualized. The uterus is surgically absent. No adnexal lesion is seen. Findings suggest pelvic floor prolapse. Skeletal structures: The skeletal structures are osteopenic. No lytic or blastic bony lesions are seen. Mild to moderate lumbosacral spondylosis is observed. There is grade 1 anterolisthesis at L5-S1. Postoperative change is seen in the right humerus on the aerial photographer tomogram. IMPRESSION: 1. The kidneys are atrophic. No renal calculi are identified. 2. There is mild left hydronephrosis. The left ureter is normal in caliber and no obstructing lesion is seen. There is minimal pooling of contrast within the left renal collecting system prior to filling of the left ureter. 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 3. No enhancing renal cortical mass is identified. There is no evidence of urothelial lesion involving the ureters. 4. The bladder is normal as visualized. 5. Findings suggest pelvic floor prolapse. 6. Advanced colonic diverticulosis without CT evidence of acute diverticulitis. 7. Additional findings as above. Electronically signed by: Carlitos Welsh M.D. 01/06/2017 11:26 AM Dictated Date/Time: 01/06/2017 11:17 AM
== END | disposition home or self-care (01) ==
LOC: C.CTS 10:38
PROVIDERS: ATTEND Urology
DX: R31.29 Other microscopic hematuria (principal); N81.10 Cystocele, unspecified; N26.1 Atrophy of kidney (terminal); K57.30 Diverticulosis of large intestine without perforation or abscess without bleeding

== ENCOUNTER → 2017-02-21 | Outpatient (CLI) | payer BC ==
[~2017-02-21] MED LIST changes: -OPTIRAY 320 IV PRN
== END | disposition home or self-care (01) ==
LOC: C.MAMM 10:33
PROVIDERS: ATTEND Internal Medicine Rheumatology
DX: M80.00XA Age-related osteoporosis with current pathological fracture, unspecified site, initial encounter for fracture (principal)

== ENCOUNTER → 2017-04-13 | Outpatient (CLI) | payer BC | END | disposition home or self-care (01) | LOC: C.LABSPEC 17:16 | PROVIDERS: ATTEND Urology | DX: N39.0 Urinary tract infection, site not specified (principal) ==